=== PATIENT | female | born 1985 | race Caucasian/White ===

== ENCOUNTER 2021-01-23 16:51 | Inpatient (IN) | payer BC ==
[2021-01-23] MEDS ORDERED: Terbutaline 1 MG/ML SDV SUBCUT PRN (17:32)
[2021-01-23] MEDS ORDERED: Sodium Chloride 0.9% 10 ML Syringe FLUSH PRN (17:36)
[2021-01-23] MEDS ORDERED: Misoprostol 200 MCG Tab PO PRN (17:36)
[2021-01-23] MEDS ORDERED: Butorphanol 1 MG/ML SDV IVPUSH PRN (17:36)
[2021-01-23] MEDS ORDERED: Tranexamic Acid 1,000 MG in Sodium Chloride 0.9% 100 ML IV PRN (17:36)
[2021-01-23] MEDS ORDERED: Sodium Chloride 0.9% 20 ML SDV IV PRN (17:36)
[2021-01-23] MEDS ORDERED: Methylergonovine 0.2 MG/1 ML Amp IM PRN (17:36)
[2021-01-23] MEDS ORDERED: Lidocaine 1% 50 ML MDV INJECT PRN (17:36)
[2021-01-23] MEDS ORDERED: Water For Irrigation,Sterile 1,000 ML Container IRR PRN (17:36)
[2021-01-23] MEDS ORDERED: Sodium Chloride 0.9% 2.5 ML Syringe FLUSH PRN (17:36)
[2021-01-23] MEDS ORDERED: Nalbuphine 10 MG/1 ML Vial IVPUSH PRN (17:36)
[2021-01-23] MEDS ORDERED: Ondansetron 4 MG/2 ML SDV IVPUSH PRN (17:36)
[2021-01-23] MEDS ORDERED: Carboprost Tromethamine 250 MCG/1 ML Amp IM PRN (17:36)
[2021-01-23] MEDS ORDERED: Insulin Regular in 0.9 % NACL 100 ML IV SCH (17:42)
[2021-01-23] MEDS ORDERED: Oxytocin/0.9 % Sodium Chloride 30 UNIT/500 ML BAG IV SCH ×2 (17:45)
[2021-01-23] MEDS ORDERED: Ampicillin 2 GM in Sodium Chloride 0.9% 100 ML IV ONE (17:45)
[2021-01-23] MEDS: Misoprostol 25 MCG (1/4 of 100 MCG) Tab VAG PRN ×2 (18:06→21:45)
[2021-01-23] MEDS: Sodium Chloride 0.9% 1,000 ML IV SCH (18:54)
[2021-01-23] MEDS: Ampicillin 1 GM in Sodium Chloride 0.9% 50 ML IV SCH (21:42)
[2021-01-24] MEDS: Sodium Chloride 0.9% 1,000 ML IV SCH ×2 (01:35→07:51)
[2021-01-24] MEDS: Misoprostol 25 MCG (1/4 of 100 MCG) Tab VAG PRN ×2 (01:53→05:56)
[2021-01-24] MEDS: Ampicillin 1 GM in Sodium Chloride 0.9% 50 ML IV SCH ×5 (01:55→17:35)
[2021-01-24] MEDS ORDERED: hydrOXYzine HCl 25 MG Tab PO STA (03:05)
[2021-01-24] MEDS: Dextrose 5% in Water 1,000 ML IV SCH ×2 (10:09→17:34)
[2021-01-24] MEDS: Lactated Ringers 1,000 ML IV SCH ×2 (13:00→16:56)
[2021-01-24] MEDS ORDERED: Ropivacaine HCl/PF 200 ML ONE (13:33)
[2021-01-24] MEDS ORDERED: ePHEDrine 50 MG/ML SDV IVPUSH PRN ×2 (13:42)
--- NOTE | 2021-01-24 13:44 | PCM.PREANE ---
Preanesthetic Assessment - Anesthesia/Transfusion/Family Hx Anesthesia History: Prior Anesthesia Without Reaction Family History of Anesthesia Reaction: No Transfusion History: No Prior Transfusion(s) - Review of Systems General: No Symptoms Pulmonary: No Symptoms Cardiovascular: No Symptoms Gastrointestinal: No Symptoms Neurological: No Symptoms Other: Reports: None - Physical Assessment NPO Status Date: 01/24/21 NPO Status Time: 08:00 Vital Signs: Last Vital Signs Temp 98.6 F 01/24/21 08:00 Pulse Resp 20 01/24/21 08:00 BP Pulse Ox Height: 5 ft 4 in Weight: 250 lb ASA Class: 2 Mental Status: Alert & Oriented x3 Airway Class: Mallampati = 2 Dentition: Reports: Normal Dentition Thyro-Mental Finger Breadths: 3 Mouth Opening Finger Breadths: 3 ROM/Head Extension: Full Lungs: Clear to Auscultation, Normal Respiratory Effort Cardiovascular: Regular Rate, Regular Rhythm - Lab Values: Laboratory Last Values WBC 10.06 K/uL (4.0-11.0) 01/23/21 17:22 RBC 4.20 M/uL (4.30-5.90) L 01/23/21 17:22 Hgb 12.1 g/dL (12.0-16.0) 01/23/21 17:22 Hct 36.6 % (36.0-46.0) 01/23/21 17:22 MCV 87.1 fL (80.0-98.0) 01/23/21 17:22 MCH 28.8 pg (27.0-32.0) 01/23/21 17:22 MCHC 33.1 g/dL (31.0-37.0) 01/23/21 17:22 RDW Std Deviation 47.2 fl (28.0-62.0) 01/23/21 17:22 RDW Coeff of Sammie 15 % (11.0-15.0) 01/23/21 17:22 Plt Count 317 K/uL (150-400) 01/23/21 17:22 MPV 9.80 fL (7.40-12.00) 01/23/21 17:22 Nucleated RBC % 0.0 /100WBC 01/23/21 17:22 Nucleated RBCs # 0 K/uL 01/23/21 17:22 POC Glucose 87 mg/dL (70-99) 11/08/21 11:58 SARS-CoV-2 RNA (OLI) NEGATIVE (NEGATIVE) 01/23/21 17:25 Blood Type O POSITIVE 01/23/21 17:22 Antibody Screen NEGATIVE 01/23/21 17:22 - Allergies Allergies/Adverse Reactions: Allergies Allergy/AdvReac Type Severity Reaction Status Date / Time No Known Allergies Allergy Verified 01/23/21 18:56 - Acknowledgements Anesthesia Type Planned: Epidural Pt an Appropriate Candidate for the Planned Anesthesia: Yes Alternatives and Risks of Anesthesia Discussed w Pt/Guardian: Yes Pt/Guardian Understands and Agrees with Anesthesia Plan: Yes PreAnesthesia Questionnaire - Past Health History Medical/Surgical History: Denies Medical/Surgical History TERRAZZO [employer]ER History: Reports: Psychiatric History: Reports: Anxiety, Depression Endocrine/Metabolic History: Reports: Diabetes, Gestational, Obesity/BMI 30+ - SUBSTANCE USE Tobacco Use Status *Q: Never Tobacco User Second Hand Smoke Exposure: No Recreational Drug Use History: No - HOME MEDS Home Medications: Home Meds Aspirin [Children's Aspirin] 81 mg PO 01/23/21 [History] Escitalopram [Lexapro] 10 mg PO DAILY 01/23/21 [History] Insulin Aspart [NovoLOG] 300 unit .XX 01/23/21 [History] Insulin Glargine,Hum.Rec.Anlog [Lantus Solostar] 100 unit SQ 01/23/21 [History] #79/Iron Asp Gly/FA#1 [Prenate Elite Tablet] 01/23/21 [History] - CURRENT (IN HOUSE) MEDS Current Meds: Current Medications Butorphanol Tartrate (Butorphanol 1 Mg/Ml Sdv) 1 mg IVPUSH Q1H PRN PRN Reason: Pain (severe 7-10) Carboprost Tromethamine (Carboprost Tromethamine 250 Mcg/1 Ml Amp) 250 mcg IM ASDIRECTED PRN PRN Reason: Post Hemorrhage Ephedrine Sulfate (Ephedrine 50 Mg/Ml Sdv) 10 mg IVPUSH Q1M PRN PRN Reason: Hypotension Ephedrine Sulfate (Ephedrine 50 Mg/Ml Sdv) 10 mg IVPUSH Q5M PRN PRN Reason: Hypotension Oxytocin/Sodium Chloride (Oxytocin 30 Unit In Ns 0.9% 500 Ml Premix) 30 unit in 500 mls @ 2 mls/hr IV TITRATE DAVID; Protocol Last Titration: 01/24/21 12:21 Dose: 6 munits/min, 6 mls/hr Documented by: Lactated Ringer's (Ringers, Lactated) 1,000 mls @ 150 mls/hr IV ASDIRECTED [facility] Last Admin: 01/24/21 13:00 Dose: 150 mls/hr Documented by: Oxytocin/Sodium Chloride (Oxytocin 30 Unit In Ns 0.9% 500 Ml Premix) 30 unit in 500 mls @ 999 mls/hr IV TITRATE DAVID Tranexamic Acid 1,000 mg/ (Sodium Chloride) 110 mls @ 660 mls/hr IV ONETIME PRN PRN Reason: Bleeding Ampicillin Sodium 1 gm/ Sodium (Chloride) 50 mls @ 100 mls/hr IV Q4H [facility] Last Admin: 01/24/21 09:54 Dose: 100 mls/hr Documented by: Dextrose/Water (Dextrose 5% In Water) 1,000 mls @ 100 mls/hr IV ASDIRECTED [facility] Last Admin: 01/24/21 10:09 Dose: 100 mls/hr Documented by: Insulin Regular in 0.9 % NACL (Myxredlin In Ns 100 Unit/100 Ml) 100 mls @ 56.699 mls/hr IV TITRATE [facility]; Protocol Last Admin: 01/24/21 11:34 Dose: 1 units/kg/hr, 113.398 mls/hr Documented by: Sodium Chloride (Normal Saline) 1,000 mls @ 150 mls/hr IV ASDIRECTED [facility] Last Admin: 01/24/21 07:51 Dose: 150 mls/hr Documented by: Lidocaine HCl (Lidocaine 1% 50 Ml Mdv) 50 ml INJECT ONETIME PRN PRN Reason: Laceration repair Methylergonovine Maleate (Methylergonovine 0.2 Mg/1 Ml Amp) 0.2 mg IM ASDIRECTED PRN PRN Reason: Post Hemorrhage Miscellaneous Medication (Phenylephrine Hcl In 0.9% Nacl 1 Mg/10 Ml Syringe) 0.1 mg IVPUSH Q1M PRN PRN Reason: Hypotension Misoprostol (Misoprostol 25 Mcg (1/4 Of 100 Mcg) Tab) 25 mcg VAG Q4H PRN PRN Reason: Cervical Ripening Last Admin: 01/24/21 05:56 Dose: 25 mcg Documented by: Misoprostol (Misoprostol 200 Mcg Tab) 200 mcg PO ONETIME PRN PRN Reason: Post Hemorrhage Nalbuphine HCl (Nalbuphine 10 Mg/1 Ml Vial) 10 mg IVPUSH Q1H PRN PRN Reason: Pain (severe 7-10) Ondansetron HCl (Ondansetron 4 Mg/2 Ml Sdv) 4 mg IVPUSH Q6H PRN PRN Reason: Nausea/Vomiting Ropivacaine (Ropivacaine/Pf 400 Mg/200 Ml Machine Sizer) 400 mg EPIDUR ASDIRECTED DAVID Sodium Chloride (Sodium Chloride 0.9% 10 Ml Syringe) 10 ml FLUSH ASDIRECTED PRN PRN Reason: Keep Vein Open Sodium Chloride (Sodium Chloride 0.9% 2.5 Ml Syringe) 2.5 ml FLUSH ASDIRECTED PRN PRN Reason: Keep Vein Open Sodium Chloride (Sodium Chloride 0.9% 20 Ml Sdv) 10 ml IV ASDIRECTED PRN PRN Reason: IV Use Sterile Water (Water For Irrigation,Sterile 1,000 Ml Container) 1,000 ml IRR ASDIRECTED PRN PRN Reason: delivery Terbutaline Sulfate (Terbutaline 1 Mg/Ml Sdv) 0.25 mg SUBCUT ASDIRECTED PRN PRN Reason: Tacysystole Discontinued Medications Hydroxyzine HCl (Hydroxyzine Hcl 25 Mg Tab) 50 mg PO ONETIME STA Stop: 01/24/21 03:06 Last Admin: 01/24/21 03:21 Dose: 50 mg Documented by: Ampicillin Sodium 2 gm/ Sodium (Chloride) 100 mls @ 200 mls/hr IV ONETIME ONE Stop: 01/23/21 18:14 Last Admin: 01/23/21 18:50 Dose: 200 mls/hr Documented by: Ropivacaine (Naropin 0.2%) Confirm Administered Dose 200 mls @ as directed .ROUTE .STK-MED ONE Stop: 01/24/21 13:34
--- NOTE | 2021-01-24 13:47 | PCM.SN.2 ---
- Pre-Procedure Checklist Attending Provider Aware: Yes Chart Reviewed: Yes Consent Signed: Yes Labs Reviewed: Yes VS/FHR Reviewed: Yes Patient Identification Confirmation Method: Reports: Chart Barcode, Chart Visual, ID Band Visual, Verbal Patient Pt an Appropriate Candidate for the Planned Anesthesia: Yes Alternatives and Risks of Anesthesia Discussed w Pt/Guardian: Yes - Procedure Procedure Start Date: 01/24/21 Procedure Start Time: 13:[address]: Reports: Blood Pressure, Heart Rate, SPO2 Functional IV: Yes Safety Measures: Reports: Patient Identified, Procedure Verified, Site Verified, Procedure Time Out Patient Position: Reports: Sitting Prep: Reports: Alcohol x3, Betadine x3 Local Anesthetic: Reports: Intradermal Wheal w Lidocaine 1% Regional Placement Level: Reports: L3-4 Needle: Reports: 17 g Touhy Approach: Reports: Midline Technique: Reports: BALBINA Glass Syringe Parasthesia: Reports: None Fluid Obtained: Reports: None Test Dose Medication: Reports: Lidocaine 1.5% w Epinephrine 1:200,000 Test Dose Response: Reports: Negative Continuous Infusion Start Time: 13:45 Continuous Infusion Medication: 0.2% Naropin Continuous Infusion Rate: 16 Continuous Infusion PCS Bolus Option: 4 Continuous Infusion Lockout Dose (cc/hr): 20 Patient Position Post Placement: Reports: Supline/MARILYNN Post-procedure Pain Level: 3 VS and FHR Monitored in Unit Post Placement: Yes Procedure End Date: 01/24/21 Procedure End Time: 14:15
--- NOTE | 2021-01-24 13:47 | PCM.POSTAN ---
POST ANESTHESIA ASSESSMENT - MENTAL STATUS Mental Status: Alert, Oriented - VITAL SIGNS Vital Signs: Last Vital Signs Temp 98.6 F 01/24/21 08:00 Pulse Resp 20 01/24/21 08:00 BP Pulse Ox - RESPIRATORY Respiratory Status: Respiratory Rate WNL, Airway Patent, O2 Saturation Stable - CARDIOVASCULAR CV Status: Pulse Rate WNL, Blood Pressure Stable - GASTROINTESTINAL GI Status: No Symptoms - POST OP HYDRATION Hydration Status: Adequate & Stable
[2021-01-24] MEDS ORDERED: Ropivacaine 0.2% 2MG/ML 200 ML Bag EPIDUR SCH (14:00)
[2021-01-24] MEDS ORDERED: Acetaminophen 500 MG Tab PO ONE (19:16)
[2021-01-24] MEDS ORDERED: Sodium Chloride 0.9% 2.5 ML Syringe FLUSH PRN (20:50)
[2021-01-24] MEDS ORDERED: Citric Acid/Sodium Citrate Solution 30 ML Cup PO ONE (20:50)
[2021-01-24] MEDS ORDERED: ceFAZolin 2 GM in Premix Bag 1 BAG IV ONE (20:50)
[2021-01-24] MEDS ORDERED: Sodium Chloride 0.9% 10 ML Syringe FLUSH PRN (20:50)
[2021-01-24] MEDS ORDERED: Sodium Chloride 0.9% 20 ML SDV IV PRN (20:50)
[2021-01-24] MEDS ORDERED: Oxytocin 10 Units/1 ML SDV ONE ×2 (20:53→22:04)
[2021-01-24] MEDS ORDERED: Morphine PF 10 MG/10 ML SDV ONE (20:53)
[2021-01-24] MEDS ORDERED: ceFAZolin 1 GM Vial ONE (20:53)
[2021-01-24] MEDS ORDERED: Bupivacaine 0.5% 10 ML SDV ONE (20:53)
[2021-01-24] MEDS ORDERED: Lactated Ringers 1,000 ML IV SCH ×2 (21:00→23:00)
[2021-01-24] MEDS ORDERED: Oxytocin/0.9 % Sodium Chloride 30 UNIT/500 ML BAG IV SCH (21:00)
[2021-01-24] MEDS ORDERED: Sodium Chloride 0.9% 20 ML ONE (21:01)
[2021-01-24] MEDS ORDERED: Ondansetron 4 MG/2 ML SDV ONE (21:07)
[2021-01-24] MEDS ORDERED: Ropivacaine 0.5% 5 MG/ML 30 ML SDV ONE (21:37)
[2021-01-24] MEDS ORDERED: Metoclopramide 10 MG/2 ML SDV ONE (22:06)
[2021-01-24] MEDS ORDERED: Glycopyrrolate 0.2 MG/ML SDV ONE (22:07)
[2021-01-24] MEDS ORDERED: Midazolam 1 MG/ML 2 ML SDV ONE (22:20)
[2021-01-24] MEDS ORDERED: Misoprostol 200 MCG Tab RECTAL PRN (22:51)
[2021-01-24] MEDS ORDERED: Methylergonovine 0.2 MG/1 ML Amp IM PRN (22:51)
[2021-01-24] MEDS ORDERED: Bisacodyl 10 MG Supp RECTAL PRN (22:51)
[2021-01-24] MEDS ORDERED: Oxytocin 10 Units/1 ML SDV IM PRN (22:51)
[2021-01-24] MEDS ORDERED: diphenhydrAMINE 50 MG/ML SDV IVPUSH PRN ×2 (22:51→23:01)
[2021-01-24] MEDS ORDERED: Tranexamic Acid 1,000 MG in Sodium Chloride 0.9% 100 ML IV PRN (22:51)
[2021-01-24] MEDS ORDERED: Ibuprofen 800 MG Tab PO PRN (22:51)
[2021-01-24] MEDS ORDERED: Ondansetron 4 MG/2 ML SDV IVPUSH PRN ×3 (22:51→23:01)
[2021-01-24] MEDS ORDERED: Lanolin 100% Cream 7 GM Tube TOP PRN (22:51)
[2021-01-24] MEDS ORDERED: Acetaminophen/oxyCODONE 325-5 MG Tab PO PRN ×3 (22:51→23:01)
--- NOTE | 2021-01-24 22:58 | PCM48HPAN ---
Post Anesthesia Note - EVALUATION WITHIN 48HRS OF ANESTHETIC Vital Signs in Normal Range: Yes Patient Participated in Evaluation: Yes Respiratory Function Stable: Yes Airway Patent: Yes Cardiovascular Function Stable: Yes Hydration Status Stable: Yes Pain Control Satisfactory: Yes Nausea and Vomiting Control Satisfactory: Yes Mental Status Recovered: Yes Vital Signs: Last Vital Signs Temp 98.6 F 01/24/21 08:00 Pulse Resp 20 01/24/21 08:00 BP Pulse Ox
[2021-01-24] MEDS ORDERED: Oxytocin/Lactated Ringers 30 UNIT/500 ML BAG IV SCH (23:00)
[2021-01-24] MEDS ORDERED: Naloxone 0.4 MG/ML SDV IVPUSH PRN (23:01)
[2021-01-24] MEDS ORDERED: Metoclopramide 10 MG/2 ML SDV IVPUSH PRN (23:01)
[2021-01-24] MEDS ORDERED: Albuterol 0.083% 2.5 MG/3 ML Neb Soln NEB PRN (23:01)
[2021-01-24] MEDS ORDERED: Nalbuphine 10 MG/1 ML Vial IVPUSH PRN (23:01)
[2021-01-24] MEDS ORDERED: fentaNYL 100 MCG/2 ML SDV IVPUSH PRN ×2 (23:01)
[2021-01-24] MEDS ORDERED: Morphine 4 MG/ML VIAL IVPUSH PRN (23:01)
[2021-01-24] MEDS ORDERED: HYDROmorphone 1 MG/ML Syringe IVPUSH PRN (23:01)
--- NOTE | 2021-01-24 23:01 | PCM.SN.2 ---
- Free Text/Narrative Note: Anesthesia Start: 2245 Anesthesia End:2247 Following a block time out and using US guidance, a bilateral TAPS block was placed under sterile conditions for post op anlagesia. 15 cc per side of 0.5% Naropin was placed in 5cc increments using a 100mm, 21g, stimuplex needle. No complications. Patient was taken to PACU in stable condition Maciej Ceballos MD
--- NOTE | 2021-01-24 23:05 | PCM.OPNOTE ---
- General Post-Op/Procedure Note Date of Surgery/Procedure: 01/24/21 Operative Procedure(s): Primary lower transverse section Findings: Normal appearing female in cephalic, occiput posterior position. Nuchal chord x1. Clear amniotic fluid. APGARs 8/8. Weight 3650g. Normal appearing uterus, tubes and ovaries. Pre Op Diagnosis: 1. Single intrauterine gestation at 38w1d. 2. Gestation diabetes mellitus, poorly controlled with insulin. 3. Polyhydramnios. 4. Maternal obesity. 5. Anxiety Post-Op Diagnosis: 1. Single intrauterine gestation at 38w1d. 2. Gestation diabetes mellitus, poorly controlled with insulin. 3. Polyhydramnios. 4. Maternal obesity. 5. Anxiety Anesthesia Technique: Epidural Primary Surgeon: Lluvia Bartlett Anesthesia Provider: Maciej Ceballos Pathology: None Fluid Replacement, Intraop: 850 (crystalloid) Output, Urine Amount: 25 EBL in mLs: 500 Complications: None known Condition: Good Free Text/Narrative:: Intake & Output 01/24/21 01/24/21 01/24/21 06:59 14:59 22:59 Intake Total 950 500 Output Total 50 500 Balance 900 0 Dictation #[id number]
[2021-01-25] MEDS: Ketorolac 30 MG/ML SDV IVPUSH SCH ×5 (00:02→23:13)
--- NOTE | 2021-01-25 00:04 | OR ---
SURGEON: LLUVIA ENCARNACION MD DATE OF PROCEDURE: 01/24/2021 PREOPERATIVE DIAGNOSES: 1. Single intrauterine gestation at 38 weeks and 1 day. 2. Gestational diabetes mellitus, poorly controlled with insulin. 3. Polyhydramnios. 4. Maternal obesity. 5. Anxiety. POSTOPERATIVE DIAGNOSES: 1. Single intrauterine gestation at 38 weeks and 1 day. 2. Gestational diabetes mellitus, poorly controlled with insulin. 3. Polyhydramnios. 4. Maternal obesity. 5. Anxiety. PROCEDURES: Primary low transverse section. PRIMARY SURGEON: Lluvia Encarnacion MD ANESTHESIOLOGIST: Dr. Maciej Ceballos. ANESTHESIA: Epidural. COMPLICATIONS: None known. ESTIMATED BLOOD LOSS: 500 mL. IV FLUID: 850 mL of crystalloid. URINE OUTPUT: 25 mL of clear urine at the end of the procedure. INDICATIONS: The patient is a 35-year-old, 2, para 1, who was admitted to Labor and Delivery on 01/24/2021 for induction of labor due to uncontrolled gestational diabetes and polyhydramnios. Labor progressed slowly throughout the day and was complicated by non-reassuring heart tones. At approximately 2100, repeat cervical exam was performed and no cervical change had been noted from prior exam at 4 to 5 cm, 70% effaced, and -3 station. Pitocin unable to be resumed due to non-reassuring heart tones including variable decelerations with contractions. Decision made to proceed with primary low transverse section at that time due to intolerance to labor. FINDINGS: Normal-appearing female in cephalic, occiput posterior position. Nuchal cord x1. Clear amniotic fluid. scores of 8 and 8. Weight 3650 g. Normal-appearing uterus, fallopian tubes, and ovaries. PROCEDURE IN DETAIL: Patient was taken to the operating room where epidural anesthesia was found to be adequate. She was then prepped and draped in the normal sterile fashion in the dorsal supine position with leftward tilt. Skin incision was made with a scalpel and carried to the underlying layer of fascia which was incised in the midline. The fascial incision was then extended laterally with Fagan scissors bilaterally. The superior aspect of the fascial incision was then grasped with Honey clamps, elevated, and dissected off the rectus muscles with Mayos. The inferior aspect of the fascial incision was then grasped with Kochers and in a likewise manner was elevated and dissected off with Mayos. The peritoneum was then entered digitally and extended with good visualization of the bladder. The Audie O-ring was then inserted to the abdominal cavity for better visualization. The vesicouterine peritoneum was then identified, grasped with pickups, and entered sharply with Metzenbaum scissors. A bladder flap was then created digitally. The uterine incision was then created in a transverse fashion in the lower uterine segment with a scalpel and extended digitally. Clear amniotic fluid was noted. The 's head delivered atraumatically. Loose nuchal cord was noted and reduced x1. 's nose and mouth were then suctioned with bulb, cord clamped and cut, and handed off to awaiting nursing staff. After approximately 60 seconds, arterial, venous, and cord blood gases were then obtained. The placenta was then expressed and the uterus exteriorized from the abdomen and cleared of all clots and debris. The uterine incision was then repaired in a running locked fashion with 0 Monocryl. A second suture of the same was then used to imbricate the incision. Excellent hemostasis was noted. The uterus was then returned to the abdomen. Gutters cleared of all clots and debris. The Audie O-ring was then removed. The peritoneum was then closed in a running fashion with 2-0 Vicryl. The fascia was then closed with a running fashion with 0 Vicryl. The incision was irrigated. Hemostasis was assured. Subcutaneous tissue was closed with 2-0 plain gut, and the skin was closed with 3-0 Monocryl on a Vaughn needle. Steri-Strips were then placed over the incision along with pressure dressing. Sponge, lap, and needle count were correct x2. Prophylactic antibiotics were given prior to the procedure. BECKY RODRIGUEZ /[id number]
[2021-01-25] MEDS: Docusate Sodium 100 MG Cap PO SCH ×2 (09:04→20:20)
--- NOTE | 2021-01-25 13:43 | PCM.PNPP ---
- General Info Date of Service: 01/25/21 Functional Status: Reports: Pain Controlled, Tolerating Diet, Ambulating, Urinating, Other (Bleeding light) - Review of Systems General: Reports: No Symptoms HEENT: Reports: No Symptoms Pulmonary: Reports: No Symptoms Cardiovascular: Reports: No Symptoms Gastrointestinal: Reports: No Symptoms Genitourinary: Reports: No Symptoms Musculoskeletal: Reports: No Symptoms Skin: Reports: No Symptoms Neurological: Reports: No Symptoms Psychiatric: Reports: No Symptoms - Patient Data Vital Signs - Most Recent: Last Vital Signs Temp 36.5 C 01/25/21 11:54 Pulse 84 01/25/21 11:54 Resp 16 01/25/21 11:54 BP 109/70 01/25/21 11:54 Pulse Ox 100 01/25/21 11:54 Weight - Most Recent: 250 lb I&O - Last 24 Hours: Intake & Output 01/24/21 01/25/21 01/25/21 22:59 06:59 14:59 Intake Total 500 850 Output Total 500 75 350 Balance 0 775 -350 Lab Results - Last 24 Hours: Laboratory Results - last 24 hr 01/24/21 01/24/21 01/24/21 Range/Units 13:01 13:52 14:54 Hgb (12.0-16.0) g/dL Hct (36.0-46.0) % Cord ABG pH (7.18-7.38) Cord ABG Base Excess (-10--2) Cord VBG pH (7.25-7.45) Cord VBG Base Excess (-10--2) POC Glucose 84 65 L 91 (70-99) mg/dL Fasting Glucose (74-106) mg/dL 01/24/21 01/24/21 01/24/21 Range/Units 16:02 17:05 18:03 Hgb (12.0-16.0) g/dL Hct (36.0-46.0) % Cord ABG pH (7.18-7.38) Cord ABG Base Excess (-10--2) Cord VBG pH (7.25-7.45) Cord VBG Base Excess (-10--2) POC Glucose 55 L 85 85 (70-99) mg/dL Fasting Glucose (74-106) mg/dL 01/24/21 01/24/21 01/24/21 Range/Units 19:13 20:17 21:59 Hgb (12.0-16.0) g/dL Hct (36.0-46.0) % Cord ABG pH 7.380 (7.18-7.38) Cord ABG Base Excess -4 (-10--2) Cord VBG pH 7.258 (7.25-7.45) Cord VBG Base Excess -5 (-10--2) POC Glucose 85 91 (70-99) mg/dL Fasting Glucose (74-106) mg/dL 01/25/21 01/25/21 01/25/21 Range/Units 05:20 05:20 05:26 Hgb 10.5 L (12.0-16.0) g/dL Hct 32.2 L (36.0-46.0) % Cord ABG pH (7.18-7.38) Cord ABG Base Excess (-10--2) Cord VBG pH (7.25-7.45) Cord VBG Base Excess (-10--2) POC Glucose 106 H (70-99) mg/dL Fasting Glucose 118 H (74-106) mg/dL Med Orders - Current: Current Medications Albuterol (Albuterol 0.083% 2.5 Mg/3 Ml Neb Soln) 2.5 mg NEB ONETIME PRN PRN Reason: Wheezing Bisacodyl (Bisacodyl 10 Mg Supp) 10 mg RECTAL ONETIME PRN PRN Reason: Constipation Butorphanol Tartrate (Butorphanol 1 Mg/Ml Sdv) 1 mg IVPUSH Q1H PRN PRN Reason: Pain (severe 7-10) Carboprost Tromethamine (Carboprost Tromethamine 250 Mcg/1 Ml Amp) 250 mcg IM ASDIRECTED PRN PRN Reason: Post Hemorrhage Diphenhydramine HCl (Diphenhydramine 50 Mg/Ml Sdv) 25 mg IVPUSH Q6H PRN PRN Reason: Itching or Nausea Last Admin: 01/25/21 00:57 Dose: 25 mg Documented by: Diphenhydramine HCl (Diphenhydramine 50 Mg/Ml Sdv) 12.5 mg IVPUSH Q2H PRN PRN Reason: Itching Docusate Sodium (Docusate Sodium 100 Mg Cap) 100 mg PO BID [facility] Last Admin: 01/25/21 09:04 Dose: 100 mg Documented by: Droperidol (Droperidol 5 Mg/2 Ml Sdv) 0.625 mg IVPUSH ONETIME PRN PRN Reason: Nausea/Vomiting Emollient Ointment (Lanolin 100% Cream 7 Gm Tube) 0 gm TOP ASDIRECTED PRN PRN Reason: Sore Nipples Ephedrine Sulfate (Ephedrine 50 Mg/Ml Sdv) 10 mg IVPUSH Q1M PRN PRN Reason: Hypotension Ephedrine Sulfate (Ephedrine 50 Mg/Ml Sdv) 10 mg IVPUSH Q5M PRN PRN Reason: Hypotension Fentanyl (Fentanyl 100 Mcg/2 Ml Sdv) 50 mcg IVPUSH Q15M PRN PRN Reason: Pain (severe 7-10) Fentanyl (Fentanyl 100 Mcg/2 Ml Sdv) 50 mcg IVPUSH Q5M PRN PRN Reason: Pain (mild 1-3) Hydromorphone HCl (Hydromorphone 1 Mg/Ml Syringe) 1 mg IVPUSH Q10M PRN PRN Reason: Pain (moderate 4-6) Oxytocin/Sodium Chloride (Oxytocin 30 Unit In Ns 0.9% 500 Ml Premix) 30 unit in 500 mls @ 2 mls/hr IV TITRATE [facility]; Protocol Last Titration: 01/24/21 16:37 Dose: 0 munits/min, 0 mls/hr Documented by: Lactated Ringer's (Ringers, Lactated) 1,000 mls @ 150 mls/hr IV ASDIRECTED [facility] Last Admin: 01/24/21 16:56 Dose: 150 mls/hr Documented by: Oxytocin/Sodium Chloride (Oxytocin 30 Unit In Ns 0.9% 500 Ml Premix) 30 unit in 500 mls @ 999 mls/hr IV TITRATE [facility] Tranexamic Acid 1,000 mg/ (Sodium Chloride) 110 mls @ 660 mls/hr IV ONETIME PRN PRN Reason: Bleeding Ampicillin Sodium 1 gm/ Sodium (Chloride) 50 mls @ 100 mls/hr IV Q4H [facility] Last Admin: 01/24/21 17:35 Dose: 100 mls/hr Documented by: Dextrose/Water (Dextrose 5% In Water) 1,000 mls @ 100 mls/hr IV ASDIRECTED [facility] Last Admin: 01/24/21 17:34 Dose: 100 mls/hr Documented by: Insulin Regular in 0.9 % NACL (Myxredlin In Ns 100 Unit/100 Ml) 100 mls @ 56.699 mls/hr IV TITRATE [facility]; Protocol Last Titration: 01/24/21 16:35 Dose: 0 units/kg/hr, 0 mls/hr Documented by: Sodium Chloride (Normal Saline) 1,000 mls @ 150 mls/hr IV ASDIRECTED [facility] Last Admin: 01/24/21 07:51 Dose: 150 mls/hr Documented by: Lactated Ringer's (Ringers, Lactated) 1,000 mls @ 500 mls/hr IV BOLUS [facility] Oxytocin/Sodium Chloride (Oxytocin 30 Unit In Ns 0.9% 500 Ml Premix) 30 unit in 500 mls @ 250 mls/hr IV TITRATE [facility] Lactated Ringer's (Ringers, Lactated) 1,000 mls @ 125 mls/hr IV ASDIRECTED [facility] Last Admin: 01/25/21 09:47 Dose: 125 mls/hr Documented by: Oxytocin/Lactated Ringer's (Pitocin In Lr 30 Units/500 Ml) 30 unit in 500 mls @ 125 mls/hr IV TITRATE [facility]; Protocol Tranexamic Acid 1,000 mg/ (Sodium Chloride) 110 mls @ 660 mls/hr IV ONETIME PRN PRN Reason: Bleeding Ibuprofen (Ibuprofen 800 Mg Tab) 800 mg PO Q8H PRN PRN Reason: Cramping Ketorolac Tromethamine (Ketorolac 30 Mg/Ml Sdv) 30 mg IVPUSH Q6H [facility] Stop: 01/25/21 23:01 Last Admin: 01/25/21 12:07 Dose: 30 mg Documented by: Lidocaine HCl (Lidocaine 1% 50 Ml Mdv) 50 ml INJECT ONETIME PRN PRN Reason: Laceration repair Methylergonovine Maleate (Methylergonovine 0.2 Mg/1 Ml Amp) 0.2 mg IM ASDIRECTED PRN PRN Reason: Post Hemorrhage Methylergonovine Maleate (Methylergonovine 0.2 Mg/1 Ml Amp) 0.2 mg IM ONETIME PRN PRN Reason: Excessive Vaginal Bleeding Metoclopramide HCl (Metoclopramide 10 Mg/2 Ml Sdv) 10 mg IVPUSH ONETIME PRN PRN Reason: Nausea/Vomiting Miscellaneous Medication (Phenylephrine Hcl In 0.9% Nacl 1 Mg/10 Ml Syringe) 0.1 mg IVPUSH Q1M PRN PRN Reason: Hypotension Misoprostol (Misoprostol 25 Mcg (1/4 Of 100 Mcg) Tab) 25 mcg VAG Q4H PRN PRN Reason: Cervical Ripening Last Admin: 01/24/21 05:56 Dose: 25 mcg Documented by: Misoprostol (Misoprostol 200 Mcg Tab) 200 mcg PO ONETIME PRN PRN Reason: Post Hemorrhage Misoprostol (Misoprostol 200 Mcg Tab) 1,000 mcg RECTAL ONETIME PRN PRN Reason: excessive bleeding Morphine Sulfate (Morphine 4 Mg/Ml Vial) 2 mg IVPUSH Q10M PRN PRN Reason: Pain (severe 7-10) Nalbuphine HCl (Nalbuphine 10 Mg/1 Ml Vial) 10 mg IVPUSH Q1H PRN PRN Reason: Pain (severe 7-10) Nalbuphine HCl (Nalbuphine 10 Mg/1 Ml Vial) 5 mg IVPUSH Q30M PRN PRN Reason: Itching Naloxone HCl (Naloxone 0.4 Mg/Ml Sdv) 0.1 mg IVPUSH ASDIRECTED PRN PRN Reason: Respiratory Depression Ondansetron HCl (Ondansetron 4 Mg/2 Ml Sdv) 4 mg IVPUSH Q6H PRN PRN Reason: Nausea/Vomiting Last Admin: 01/24/21 16:29 Dose: 4 mg Documented by: Ondansetron HCl (Ondansetron 4 Mg/2 Ml Sdv) 4 mg IVPUSH Q4H PRN PRN Reason: Nausea/Vomiting Ondansetron HCl (Ondansetron 4 Mg/2 Ml Sdv) 4 mg IVPUSH Q6H PRN PRN Reason: Nausea Ondansetron HCl (Ondansetron 4 Mg/2 Ml Sdv) 4 mg IVPUSH ONETIME PRN PRN Reason: Nausea/Vomiting Oxycodone/Acetaminophen (Acetaminophen/Oxycodone 325-5 Mg Tab) 1 tab PO Q4H PRN PRN Reason: Pain (severe 7-10) Oxycodone/Acetaminophen (Acetaminophen/Oxycodone 325-5 Mg Tab) 2 tab PO Q4H PRN PRN Reason: Pain (severe 7-10) Oxycodone/Acetaminophen (Acetaminophen/Oxycodone 325-5 Mg Tab) 2 tab PO Q6H PRN PRN Reason: Pain (moderate 4-6) Oxytocin (Oxytocin 10 Units/1 Ml Sdv) 10 unit IM ASDIRECTED PRN PRN Reason: Excessive Vaginal Bleeding Ropivacaine (Ropivacaine 0.2% 2mg/Ml 200 Ml Bag) 400 mg EPIDUR ASDIRECTED [facility] Sodium Chloride (Sodium Chloride 0.9% 10 Ml Syringe) 10 ml FLUSH ASDIRECTED PRN PRN Reason: Keep Vein Open Sodium Chloride (Sodium Chloride 0.9% 2.5 Ml Syringe) 2.5 ml FLUSH ASDIRECTED PRN PRN Reason: Keep Vein Open Sodium Chloride (Sodium Chloride 0.9% 20 Ml Sdv) 10 ml IV ASDIRECTED PRN PRN Reason: IV Use Sodium Chloride (Sodium Chloride 0.9% 10 Ml Syringe) 10 ml FLUSH ASDIRECTED PRN PRN Reason: Keep Vein Open Sodium Chloride (Sodium Chloride 0.9% 2.5 Ml Syringe) 2.5 ml FLUSH ASDIRECTED PRN PRN Reason: Keep Vein Open Sodium Chloride (Sodium Chloride 0.9% 20 Ml Sdv) 10 ml IV ASDIRECTED PRN PRN Reason: IV Use Sterile Water (Water For Irrigation,Sterile 1,000 Ml Container) 1,000 ml IRR ASDIRECTED PRN PRN Reason: delivery Terbutaline Sulfate (Terbutaline 1 Mg/Ml Sdv) 0.25 mg SUBCUT ASDIRECTED PRN PRN Reason: Tacysystole Discontinued Medications Acetaminophen (Acetaminophen 500 Mg Tab) 1,000 mg PO ONETIME ONE Stop: 01/24/21 19:17 Last Admin: 01/24/21 19:49 Dose: 1,000 mg Documented by: Bupivacaine HCl (Bupivacaine 0.5% 10 Ml Sdv) Confirm Administered Dose 10 ml .ROUTE .STK-MED ONE Stop: 01/24/21 20:54 Cefazolin Sodium (Cefazolin 1 Gm Vial) Confirm Administered Dose 2 gm .ROUTE .STK-MED ONE Stop: 01/24/21 20:54 Citric Acid/Sodium Citrate (Citric Acid/Sodium Citrate Solution 30 Ml Cup) 30 ml PO ONETIME ONE Stop: 01/24/21 20:51 Glycopyrrolate (Glycopyrrolate 0.2 Mg/Ml Sdv) Confirm Administered Dose 0.2 mg .ROUTE .STK-MED ONE Stop: 01/24/21 22:08 Hydroxyzine HCl (Hydroxyzine Hcl 25 Mg Tab) 50 mg PO ONETIME STA Stop: 01/24/21 03:06 Last Admin: 01/24/21 03:21 Dose: 50 mg Documented by: Ampicillin Sodium 2 gm/ Sodium (Chloride) 100 mls @ 200 mls/hr IV ONETIME ONE Stop: 01/23/21 18:14 Last Admin: 01/23/21 18:50 Dose: 200 mls/hr Documented by: Ropivacaine (Naropin 0.2%) Confirm Administered Dose 200 mls @ as directed .ROUTE .STK-MED ONE Stop: 01/24/21 13:34 Cefazolin Sodium/Dextrose 2 gm (/ Premix) 50 mls @ 100 mls/hr IV ONETIME ONE Stop: 01/24/21 21:19 Sodium Chloride (Normal Saline) Confirm Administered Dose 20 mls @ as directed .ROUTE .STK-MED ONE Stop: 01/24/21 21:02 Metoclopramide HCl (Metoclopramide 10 Mg/2 Ml Sdv) Confirm Administered Dose 10 mg .ROUTE .STK-MED ONE Stop: 01/24/21 22:07 Midazolam HCl (Midazolam 1 Mg/Ml 2 Ml Sdv) Confirm Administered Dose 2 mg .ROUTE .STK-MED ONE Stop: 01/24/21 22:21 Miscellaneous Medication (Phenylephrine Hcl In 0.9% Nacl 1 Mg/10 Ml Syringe) Confirm Administered Dose 1 mg .ROUTE .STK-MED ONE Stop: 01/24/21 20:54 Morphine Sulfate (Morphine Pf 10 Mg/10 Ml Sdv) Confirm Administered Dose 10 mg .ROUTE .STK-MED ONE Stop: 01/24/21 20:54 Ondansetron HCl (Ondansetron 4 Mg/2 Ml Sdv) Confirm Administered Dose 4 mg .ROUTE .STK-MED ONE Stop: 01/24/21 21:08 Oxytocin (Oxytocin 10 Units/1 Ml Sdv) Confirm Administered Dose 30 unit .ROUTE .STK-MED ONE Stop: 01/24/21 20:54 Oxytocin (Oxytocin 10 Units/1 Ml Sdv) Confirm Administered Dose 10 unit .ROUTE .STK-MED ONE Stop: 01/24/21 22:05 Ropivacaine (Ropivacaine 0.5% 5 Mg/Ml 30 Ml Sdv) Confirm Administered Dose 30 ml .ROUTE .STK-MED ONE Stop: 01/24/21 21:38 - Interaction Disposition, : Not Applicable Support Person: - Recovery Exam Fundal Tone: Firm Fundal Level: 2 Fingerbreadths Below Umbilicus Fundal Placement: Midline Lochia Amount: Small Lochia Color: Serosa/[place] Perineum Description: Intact, Minimal Bruising/Swelling Episiotomy/Laceration: None Bladder Status: Indwelling Catheter in Place Urinary Elimination: Indwelling Catheter - Exam General: Alert, Oriented, Cooperative, No Acute Distress HEENT: Pupils Equal, Pupils Reactive, EOMI Neck: Supple, Trachea Midline, No JVD Lungs: Normal Respiratory Effort GI/Abdominal Exam: Soft, Non-Tender, No Organomegaly, No Distention Extremities: Normal Inspection, Normal Range of Motion, Non-Tender, No Pedal Edema Skin: Warm, Dry, Intact Wound/Incisions: Healing Well Neurological: No New Focal Deficit Psy/Mental Status: Alert, Normal Affect, Normal Mood - Problem List Review Problem List Initiated/Reviewed/Updated: Yes - Assessment Assessment:: 35yo POD1 s/p primary due to distress, stable and recovering well. - Plan Plan:: - vitals stable - Hgb 10.5, bleeding light, no s/s of anemia - good UO, remove gardiner today - baby was transferred to [place] last night Plan for discharge home tomorrow
== END 2021-01-26 09:40 | disposition home or self-care (01) | DRG 540 ==
LOC: MW.OB 16:51 → MW.OBCHECK 16:51 → MW.OB 17:32 → OBSVTOIN 01-24 20:51 → MW.OB 01-25 02:04
PROVIDERS: ADMIT Obstetrics & Gynecology; ATTEND Obstetrics & Gynecology
PROC: 10D00Z1 Extraction of Products of Conception, Low, Open Approach (ICD-10-PCS; principal; 2021-01-24)
PROC: 3E0R3BZ Introduction of Anesthetic Agent into Spinal Canal, Percutaneous Approach (ICD-10-PCS; 2021-01-24)
PROC: 00HU33Z Insertion of Infusion Device into Spinal Canal, Percutaneous Approach (ICD-10-PCS; 2021-01-24)
PROC: 10907ZC Drainage of Amniotic Fluid, Therapeutic from Products of Conception, Via Natural or Artificial Opening (ICD-10-PCS; 2021-01-24)
PROC: 3E033VJ Introduction of Other Hormone into Peripheral Vein, Percutaneous Approach (ICD-10-PCS; 2021-01-24)
DX: O24.424 Gestational diabetes mellitus in childbirth, insulin controlled (principal); Z3A.38 38 weeks gestation of pregnancy; Z37.0 Single live birth; O40.3XX0 Polyhydramnios, third trimester, not applicable or unspecified; O99.214 Obesity complicating childbirth; E66.9 Obesity, unspecified; O99.344 Other mental disorders complicating childbirth; F41.9 Anxiety disorder, unspecified; F32.A Depression, unspecified; O99.824 Streptococcus B carrier state complicating childbirth; O76 Abnormality in fetal heart rate and rhythm complicating labor and delivery; O69.81X0 Labor and delivery complicated by cord around neck, without compression, not applicable or unspecified; Z20.822 Contact with and (suspected) exposure to COVID-19
CPT/HCPCS: 01967; 01968; 36415; 51702; 59025; 64488; 82803; 82947; 85014; 85018; 85027; 86592; 86850; 86900; 86901; A9270-GY; J0290; J0690; J1200; J1815; J1885; J2250; J2270; J2370; J2405; J2590; J2765; J2795; J3490; J7030; J7060; J7120; U0002

== ENCOUNTER 2022-01-28 08:30 | Emergency (ER) | payer BC | END 2022-01-28 09:34 | disposition home or self-care (01) | LOC: MW.ED 08:30 | DX: J02.9 Acute pharyngitis, unspecified (principal); E66.9 Obesity, unspecified; Z68.41 Body mass index [BMI] 40.0-44.9, adult | CPT/HCPCS: 87651-QW; 99283 ==

== ENCOUNTER 2023-03-24 13:41 | Emergency (ER) | payer BC ==
[2023-03-24 16:25] LABS: CORONAVIRUS COVID-19 NAA NEGATIVE (NEGATIVE); INFLUENZA A NAA NEGATIVE (NEGATIVE); INFLUENZA B NAA NEGATIVE (NEGATIVE); RESPIRATORY SYNCYTIAL VIR NAA NEGATIVE (NEGATIVE)
[2023-03-24 17:14] LABS: HEMATOCRIT 35.9 % (37.0-47.0); MEAN CORPUSCULAR HEMOGLOBIN 29.2 pg (28.0-32.0); MEAN CORPUSCULAR HGB CONC 33.4 g/dL (32.0-36.0); MEAN CORPUSCULAR VOLUME 87.3 fL (83.0-99.0); PLATELET COUNT,PLT 380 K/uL (150-400); RED BLOOD CELL COUNT 4.11 M/uL (4.10-5.30)
[2023-03-24 17:38] LABS: A/G RATIO 0.6 (0.9-1.6); ALBUMIN 2.9 g/dL (3.4-5.0); BILIRUBIN TOTAL 0.4 mg/dL (0.2-1.0); CALCIUM 8.6 mg/dL (8.5-10.1); CARBON DIOXIDE,CO2 30.4 mmol/L (21.0-32.0); CREATININE 0.7 mg/dL (0.6-1.0); EST CRCL DRUG DOSING (CG) 96.86 mL/min; POTASSIUM,K 3.3 mmol/L (3.5-5.1); PROTEIN TOTAL,TP 7.5 g/dL (6.4-8.2)
[2023-03-24 17:39] LABS: LYMPHOCYTES ABSOLUTE MAN 1.71 K/uL (1.00-4.80); LYMPHOCYTES PERCENT MAN 30 % (24-44); SEG NEUTROPHILS ABSOLUTE MAN 3.42 K/uL (1.80-7.70); SEG NEUTROPHILS PERCENT MAN 60 % (41-71)
[2023-03-24 17:40] LABS: BASOPHILS ABSOLUTE MAN 0.06 K/uL (0.00-0.20); BASOPHILS PERCENT MAN 1 % (0-1); EOSINOPHILS ABSOLUTE MAN 0.06 K/uL (0.00-0.45); EOSINOPHILS PERCENT MAN 1 % (0-6); MONOCYTES ABSOLUTE MAN 0.46 K/uL (0.00-0.80); MONOCYTES PERCENT MAN 8 % (0-8)
== END 2023-03-24 18:34 | disposition home or self-care (01) ==
LOC: MW.ED 13:41
DX: J06.9 Acute upper respiratory infection, unspecified (principal); E66.9 Obesity, unspecified; Z20.822 Contact with and (suspected) exposure to COVID-19; Z79.899 Other long term (current) drug therapy; Z68.41 Body mass index [BMI] 40.0-44.9, adult
CPT/HCPCS: 0241U; 36415; 71045; 80053; 85025; 99284